=== PATIENT | male | born 1980 | race African-American/Black ===

== ENCOUNTER 2019-04-10 03:46 | Inpatient (IN) | payer SELFPAY ==
[2019-04-10] MEDS ORDERED: Lorazepam 2 MG/ML VIAL ONE ×2 (04:16→08:43)
[2019-04-10 05:20] LABS: Hemoglobin 12.7 g/dL (14.0-18.0); Mean Corpuscular HGB CONC 33.1 g/dL (32.0-36.0); Mean Corpuscular Hemoglobin 31.1 pg (27.0-31.0); Mean Platelet Volume 7.9 fL (7.4-10.4); Platelet Count 263 thou/uL (130-400); RBC Distribution Width 12.7 % (11.5-14.5); Red Blood Cell (RBC) Count 4.09 mill/uL (4.70-6.10); White Blood Cell (WBC) Count 28.4 thou/uL (4.8-10.8)
[2019-04-10 05:30] LABS: ALT (SGPT) 39 U/L (8-55); AST (SGOT) 35 U/L (5-34); Albumin 3.8 g/dL (3.5-5.0); Alkaline Phosphatase 64 U/L (40-150); Anion Gap 17 mmol/L (10-20); BUN (Urea Nitrogen) 33 mg/dL (8.9-20.6); Bilirubin, Total 0.2 mg/dL (0.2-1.2); Calc. Creatinine Clearance 0 mL/min (70-130); Calcium 8.8 mg/dL (7.8-10.44); Carbon Dioxide 20 mmol/L (22-29); Chloride 106 mmol/L (98-107); Estimated GFR-MDRD 61; Globulin 2.8 g/dL (2.4-3.5); Glucose 311 mg/dL (70-105); Potassium 4.5 mmol/L (3.5-5.1); Protein, Total 6.6 g/dL (6.0-8.3); Sodium 138 mmol/L (136-145)
[2019-04-10] MEDS ORDERED: Succinylcholine Chloride 20 MG/ML 10 ml SYRINGE FS ONE (05:37)
[2019-04-10] MEDS ORDERED: FOSPHENYTOIN SODIUM IVPB SCH (05:45)
[2019-04-10] MEDS ORDERED: SODIUM CHLORIDE 0.9% IVPB SCH (05:45)
[2019-04-10] MEDS ORDERED: Propofol 1,000 MG/100 ML VIAL IV ONE (05:47)
[2019-04-10 05:58] LABS: Band 3 % (5-11); Lymphocytes 4 % (21-51); MDiff Complete? YES; Monocytes 9 % (0-10); Neutrophil 84 % (42-75)
[2019-04-10] MEDS ORDERED: Fentanyl 100 MCG/2 ML VIAL ONE (05:59)
[2019-04-10] MEDS ORDERED: fentaNYL Citrate/PF 2,000 MCG in Sodium Chloride 0.9% 60 ML IV SCH ×2 (06:06→09:14)
[2019-04-10 06:45] LABS: Actual Bicarbonate (HCO3a) 20.2 mEq/L (22-28); Analyzer IN Cardio ER; Base Excess (BEa) -3.4 mEq/L (-2.0 to +3.0); Calcium, Ionized 1.14 mmol/L (1.12-1.30); Carboxyhemoglobin (COHb) 0.3 gm% (0.0-3.0); Hemoglobin (Hb) 12.5 g/dL (14.0-18.0); pH, Arterial 7.42 (7.35-7.45)
[2019-04-10 06:47] LABS: O2 Tension (PaO2) 508.3 mmHg (80.0-100.0); Puncture Site LRA
[2019-04-10 07:51] LABS: Bacteria/HPF None Seen HPF (None Seen); Bilirubin Negative (Negative); Blood, Urine 1+ (Negative); Clarity Clear (Clear); Glucose, Urine (Dipstick) Greater than 1000 mg/dL (Negative); Leukocyte Negative Leu/uL (Negative); Mucous/LPF Rare LPF (<2+); Nitrite Negative (Negative); Protein, Urine (Dipstick) 20 mg/dL (Neg-Trace); RBC/HPF None Seen HPF (0-3); Squamous Epithelial None Seen HPF (0-3); Urobilinogen Normal mg/dL (Less than 2); WBC/HPF 0-3 HPF (0-3)
[2019-04-10] MEDS ORDERED: hydrALAZINE 20 MG/ML VIAL SLOW IVP PRN (08:23)
[2019-04-10] MEDS ORDERED: HumaLOG 300 UNITS/3 ML VIAL SC PRN (08:23)
[2019-04-10] MEDS ORDERED: Ventilator Sedation Protocol 1 EACH FS SCH (08:23)
[2019-04-10] MEDS ORDERED: Dextrose 5% in Water 1,000 ML IV PRN (08:23)
[2019-04-10] MEDS ORDERED: Ondansetron PF 4 MG/2 ML Vial IVP PRN (08:23)
[2019-04-10] MEDS ORDERED: CCU Electrolyte Replacement 1 EACH IVPB ONE (08:23)
[2019-04-10] MEDS ORDERED: SYSTANE 3.5 GM TUBE EA EYE PRN (08:23)
[2019-04-10] MEDS ORDERED: Acetaminophen 650 MG Suppository PR PRN (08:23)
[2019-04-10] MEDS ORDERED: Bisacodyl 10 MG SUPP PR PRN (08:23)
[2019-04-10] MEDS ORDERED: Dextrose 50% Abboject 50 ML SYRINGE SLOW IVP PRN (08:23)
[2019-04-10] MEDS ORDERED: Metoclopramide HCl 10 MG/2 ML VIAL IVP PRN (08:23)
--- NOTE | 2019-04-10 08:32 | CT ---
CT OF HEAD NONCONTRAST: CLINICAL HISTORY: Seizure activity. FINDINGS: There are no prior comparisons. The patient is status post craniotomy of right parietal region, with underlying mixed-density postope rative tract, predominantly hypodense which underlies the site of craniotomy and extends inferomedial ly, to the midline. There is associated mass effect and midline shift, with approximately 5 mm leftw toy deviation at the level of the septum pellucidum. A mild degree of hyperdensity about the postope rative tract suggests hemorrhage, which may be postoperative. There is also a slight hyperdensity ov erlying the right frontal convexity adjacent minimal pneumocephalus and trace hyperdensity overlying the right convexity, which could relate to postoperative extraaxial hemorrhage. There is sulcal effa cement. Prominent soft tissues of the scalp were present. IMPRESSION: Large heterogeneous hypodense postoperative tract underlying right parietal craniotomy extending to m idline producing mass effect and midline shift. Associated postoperative hemorrhage and pneumocephal us present. Note is made of underlying tumor and/or component of infection cannot be excluded on the basis of this exam. Consider MRI of the brain with and without contrast for further evaluation. POS: MIGDALIA
--- NOTE | 2019-04-10 08:38 | CT ---
CERVICAL SPINE CT NONCONTRAST: INDICATION: Patient found down status post seizure, neck injury. FINDINGS: There is straightening of normal cervical curvature. No compression fracture of subluxation. Cranio cervical junction is intact. Incidental note of debris of the trachea which may relate to aspiration . IMPRESSION: 1. No acute fracture of the cervical spine. 2. Debris of the imaged tracheal air column which may relate to aspiration. Recommend clinical mattie elation. POS: MIGDALIA
[2019-04-10] MEDS ORDERED: Sodium Chloride 0.9% 1,000 ML IV SCH (08:45)
[2019-04-10 08:49] VITALS: BP 101/71
[2019-04-10 08:57] LABS: Magnesium 2.4 mg/dL (1.6-2.6); Phosphorus 4.7 mg/dL (2.3-4.7)
--- NOTE | 2019-04-10 08:58 | HP ---
PRIMARY CARE PHYSICIAN: [facility] Call Admission. REASON FOR ADMISSION: Acute respiratory failure, aspiration pneumonia, status epilepticus. HISTORY OF PRESENT ILLNESS: A 38-year-old male, who was recently diagnosed with brain tumor. The patient went to [facility] Emergency Room with complaint of headache, nausea, and blurred vision on March 30, 2019, and the patient was diagnosed with intracranial mass. The patient was discharged from hospital on April 02, so he can do his personal thing. Subsequently, he was readmitted and he had craniotomy done on April 04, 2019. The patient was discharged on April 07, 2019, and he returned back to hospital on the same day with new-onset seizure activity. During that admission, multiple seizure medication was changed and Keppra was added as per report. He was discharged from hospital yesterday. The patient was instructed to be very careful with insulin dosage. As per family member, he took his insulin last night around 9:00 p.m. and the patient's sister noticed him seizing around 1:00 a.m. last night and that is why she called 911 and as per paramedics, the patient was on postictal phase. The patient was brought to emergency room and in the emergency room, the patient had recurrent seizure activity. He also aspirated and for his airway protection, he was intubated. Initially, there was plan for transferring to higher level of care, but as we have capacity of 24-hour EEG and that is why the patient stayed in our ICU. In the emergency room, the patient had Ativan, IV fluid, Diprivan, fentanyl, Dilantin and subsequently, he was admitted to ICU. I saw this patient at bedside. The patient is intubated, so unable to provide any history. REVIEW OF SYSTEMS: All review of system tried to review with the patient, but unable to review at this point because of intubated. PAST MEDICAL HISTORY: History of hypertension; bladder cancer; diabetes type 2, on insulin; and recent diagnosis of brain tumor. PAST SURGICAL HISTORY: Brain tumor removal, bladder carcinoma removal. PAST PSYCHIATRIC HISTORY: Reviewed and negative. SOCIAL HISTORY: The patient has history of alcohol use socially. He does not have any history of smoking or illicit drugs abuse. FAMILY HISTORY: No family history of seizure disorder, coronary artery disease. CURRENT HOME MEDICATIONS: 1. Amlodipine 2.5 mg daily. 2. Keppra 500 mg twice daily. 3. Humalog insulin. ALLERGIES: NO KNOWN DRUG ALLERGY. EMERGENCY ROOM COURSE: Reviewed. PHYSICAL EXAMINATION: VITAL SIGNS: Currently, blood pressure 101/71, pulse 73, saturation 97% on ventilator. Weight 95.3 kg. Temperature 97.9. GENERAL: The patient is intubated and sedated. HEENT: Head; craniotomy incision healing well without any evidence of adhesions. The patient has right temporoparietal craniotomy incision. Eyes; pupils are round and reactive. No nystagmus. ENT; endotracheal tube in place. Oropharynx within normal limits. NECK: Supple. No JVD. No thyromegaly. No carotid bruit. LUNGS: Bilateral coarse breath sound in upper part, coarse rales. No wheezing. CARDIAC: S1 and S2 regular. No murmur. No gallop. No rub. ABDOMEN: Soft. No peritoneal sign. No distention. Bowel sounds present. EXTREMITIES: Upper extremity; passive movement of all joints are normal. Lower extremity, no edema. Good distal pulsation. NEUROLOGIC: Unable to assess at this point because of intubated status. SKIN: No skin rash. SIGNIFICANT LABORATORY DATA: EKG showing normal sinus rhythm, within normal limit. CT cervical spine showing no acute osseous abnormality. There is debris in posterior airway suggesting aspiration. Chest x-ray based on my review, no acute cardiopulmonary process. Post intubated chest x-ray showing no acute process. Endotracheal tube and orogastric tube in good position. CBC; WBC 28.4, hemoglobin 12.7, platelet 263 with bandemia. ABG; pH of 7.42, CO2 of 32.0, O2 of 508, bicarb 20.2, and saturation 99.4. BMP; sodium 138, potassium 4.5, chloride 106, carbon dioxide 20, BUN 33, creatinine 1.57, glucose 311, and calcium 8.8. Lactic acid 5.7. LFT; AST 35, ALT 39, alkaline phosphatase 64, and albumin 3.8. Prolactin 13.2. Urinalysis, glucosuria. Keppra level less than 2. ASSESSMENT AND PLAN: Impression: 1. Acute respiratory failure with hypoxia. The patient is intubated for airway protection underlying. The patient has aspiration pneumonia from postictal phase and recurrent seizure activity. Pulmonary consulted and they will manage ventilator while the patient is on ventilator. We will monitor ABG and chest x-ray daily. 2. Aspiration pneumonia due to recurrent seizure activity and postictal phase. The patient will be kept on Zosyn 3.375 g IV q.6 hourly. The patient will need to monitor with chest x-ray daily. 3. Acute encephalopathy due to status epilepticus to rule out nonconvulsive status epilepticus. The patient will need 24-hour continuous EEG monitoring. Neurology will be consulted. 4. Status epilepticus. The patient is currently intubated. We will continue with Keppra 1000 mg IV b.i.d. [facility] as well as Neurology on the case. 5. History of recent brain tumor, status post craniotomy. Neurosurgery on-call will be consulted. 6. Acute kidney injury. The patient will be continued with IV fluid NS at 100 mL/h. 7. Diabetes, type 2. We will continue with insulin as per sliding scale protocol. 8. Deep venous thrombosis prophylaxis, SCD boots. No Lovenox because of recent brain surgery. Gastrointestinal prophylaxis. Pepcid 20 mg IV b.i.d. CODE STATUS: The patient is full code. DISPOSITION PLAN: Based on clinical course, currently, the patient's condition is critical. Prognosis is guarded. Job ID: [id number]
[2019-04-10] MEDS ORDERED: Piperacillin/Tazobactam 3.375 GM in Sodium Chloride 0.9% 100 ML IVPB SCH (09:00)
[2019-04-10] MEDS ORDERED: Famotidine/PF 20 mg/2ml Vial SLOW IVP SCH (09:00)
[2019-04-10] MEDS ORDERED: levETIRAcetam In NaCl (Iso-Os) 1,000 MG in Premix Bag 1 BAG IVPB SCH (09:00)
[2019-04-10] MEDS ORDERED: Potassium Chloride 40 MEQ in Premix Bag 1 BAG IVPB PRN (09:13)
[2019-04-10] MEDS ORDERED: Magnesium Oxide 400 MG TAB PO PRN ×2 (09:13)
[2019-04-10] MEDS ORDERED: Potassium Chloride 20 MEQ TAB PO PRN (09:13)
[2019-04-10] MEDS ORDERED: Potassium Phosphate 12 MMOL in Sodium Chloride 0.9% 250 ML 250 ML IV PRN (09:13)
[2019-04-10] MEDS ORDERED: PHOS-NAK 1 PKT PACK PO PRN ×2 (09:13)
[2019-04-10] MEDS ORDERED: Potassium Phosphate 15 MMOL in Sodium Chloride 0.9% 250 ML 250 ML IV PRN (09:13)
[2019-04-10] MEDS ORDERED: Magnesium 2 GM/50 ML 2 GM in Premix Bag 1 BAG IVPB PRN (09:13)
[2019-04-10] MEDS ORDERED: Potassium Chloride 40 MEQ in Sodium Chloride 0.9% 250 ML 250 ML IVPB PRN (09:13)
[2019-04-10] MEDS ORDERED: Potassium Phosphate 9 MMOL in Sodium Chloride 0.9% 100 ML IVPB PRN (09:13)
[2019-04-10] MEDS ORDERED: Fentanyl BOLUS 250 ML IVPB PRN (09:14)
[2019-04-10] MEDS ORDERED: Propofol 1,000 MG/100 ML VIAL IV PRN (09:14)
[2019-04-10] MEDS ORDERED: Propofol BOLUS 1,000 MG/100 ML VIAL IV PRN (09:14)
[2019-04-10] MEDS ORDERED: Lorazepam 2 MG/ML VIAL SLOW IVP PRN (09:14)
[2019-04-10] MEDS ORDERED: Morphine 2 MG/ML SYRINGE SLOW IVP PRN (09:14)
--- NOTE | 2019-04-10 09:30 | RAD ---
CHEST 1 VIEW: HISTORY: Post intubation. FINDINGS: Heart size is normal. The lungs are clear. No pneumonia, edema, or pleural effusion. NG tube and e ndotracheal tubes are in satisfactory position as visualized. IMPRESSION: Satisfactory nasogastric tube and endotracheal tube position. No significant acute intrathoracic dis ease. POS: H
--- NOTE | 2019-04-10 10:01 | RAD ---
CHEST 1 VIEW: HISTORY: Seizure. COMPARISON: 02/10/2007. FINDINGS: Cardiac silhouette is magnified by projection. Pulmonary vasculature accentuated by shallow inspirat ion. Mediastinum is midline. Left hemidiaphragm not well delineated. Increased opacity at the retr ocardiac level. No evidence of pneumothorax. threat monitoring analyst leads overlie the chest. IMPRESSION: Obscuration of the left hemidiaphragm. Possible left basilar infiltrate versus atelectasis. Please consider upright PA and lateral views of the chest when patient can undergo that exam. POS: STONE
[2019-04-10 10:04] LABS: Lactic Acid 3.2 mmol/L (0.5-2.2)
[2019-04-10 13:51] VITALS: TEMP 98.5
--- NOTE | 2019-04-10 14:09 | CON ---
DATE OF CONSULTATION: 04/10/2019 SERVICE: Pulmonary Medicine. REASON FOR CONSULTATION: Admission to the CCU. HISTORY OF PRESENT ILLNESS: This is a 38-year-old gentleman with a past medical history of recent diagnosis of brain cancer and is status post craniotomy just earlier this month with recent discharge from the hospital. At the time of this evaluation, the patient was intubated. Therefore, much of his history was gained via chart review. It seems that after discharge from the hospital after his craniotomy, the patient had new-onset seizures, and was started on Keppra after that. The patient then had more seizure-like activity last night or early this morning around midnight, and the patient was transferred to the emergency room via EMS. The patient had recurrent seizures in the ER and was given several medications including benzodiazepines. He became altered in his mental status and was not protecting his airway and was therefore intubated. At the time of evaluation, the patient was sedated on fentanyl, though had been weaned somewhat, and the patient was not showing any signs of seizure-like activity. PAST MEDICAL HISTORY: 1. Hypertension. 2. Bladder cancer. 3. Type 2 diabetes, insulin dependent. 4. Brain mass, status post craniectomy. PAST SURGICAL HISTORY: 1. Craniectomy with brain tumor removal. 2. Bladder cancer removal. FAMILY HISTORY: No family history of seizure disorder. SOCIAL HISTORY: History of social alcohol use. No history of smoking or drugs. ALLERGIES: NO KNOWN DRUG ALLERGIES. HOME MEDICATIONS: 1. Amlodipine 2.5 mg daily. 2. Keppra 500 mg twice daily. 3. Humalog insulin. REVIEW OF SYSTEMS: Unobtainable secondary to mental status. PHYSICAL EXAMINATION: VITAL SIGNS: Blood pressure 106/77, heart rate 73, O2 saturation 93%. GENERAL: The patient is intubated and appears to be somewhat alert, in no apparent distress. LUNGS: Clear to auscultation bilaterally. CARDIAC: Regular rate and rhythm. No murmurs. NEUROLOGIC: Raissa coma scale 7 (eyes are poor, spontaneous, verbal response nontestable, motor flexion to pain. Pupils are equally reactive to light. +3 clonus at ankles bilaterally. No obvious seizure-like activity. LABORATORY DATA: White blood cell count 28.4, hemoglobin 12.7, hematocrit 38.1, platelet count 263. Chemistry; sodium is 138, potassium 4.5, carbon dioxide 20 , BUN 33, glucose 311, creatinine 1.57. Lactic acid 5.7, which trended to 3.2. TSH 2.05. Prolactin 13.2. Phosphorus 4.7, magnesium 2.4. Toxicology showed Keppra level of less than 2. Blood gas this morning at 6:40 a.m. showed pH of 7.42, pCO2 of 32, bicarbonate of 20.2. IMAGING DATA: Brain CT shows postoperative changes including a postoperative hemorrhage and pneumocephalus present. Cervical spine CT shows no acute fracture of the cervical spine and debris of the tracheal air column, which may relate to aspiration. Chest x-ray shows no acute intrathoracic disease and satisfactory NG tube placement. ASSESSMENT: 1. Acute respiratory failure with hypoxia. 2. Aspiration pneumonia secondary to seizure activity. 3. Status epilepticus. 4. Acute encephalopathy secondary to status epilepticus. 5. History of recent brain tumor with excision and recent craniotomy. 6. Type 2 diabetes. 7. Hypertension. DISCUSSION AND PLAN: This patient does not seem to be having a seizure-like activity at this time, though it is difficult to tell as the patient is sedated. The patient could benefit greatly from continuous EEG and should be transferred to a center where this can be performed. If he is still having seizure-like activity , then can benefit from transfer to center where his surgery was done anyway. From a Pulmonary standpoint, the patient seems to be doing well, and if there is time, we will try to wean the vent and extubate him, we will transfer to other center. Otherwise, recommend continuing antibiotics, and the patient should have seizure-like activity, will be sedated with propofol. This patient was seen and evaluated by Dr. Neo yTson on rounds. ATTENDING ADDENDUM: When he arrived in the ICU, all sedation was held and the patient started having ongoing seizure activity. He was heavily sedated with propofol. Because we did not have continuous EEG monitoring available, the patient was transferred to a tertiary care center. 70 minutes have been devoted to this patient in various activities. I personally reviewed all imaging studies and laboratory data noted within this document. For fifty percent of this time, I was interacting with the patient at the bedside or coordinating care with the care team. For the remainder of the time I was immediately available to the patient in the hospital unit. Job ID: [id number] [facility]
--- NOTE | 2019-04-11 11:24 | DIS ---
DATE OF ADMISSION: 04/10/2019 DATE OF DISCHARGE: 04/10/2019 DISCHARGE DISPOSITION: Transferred to other hospital. PRIMARY DISCHARGE DIAGNOSES: Status epilepticus and acute encephalopathy, aspiration pneumonia, acute respiratory failure with hypoxia, lactic acidosis, and acute kidney injury. SECONDARY DISCHARGE DIAGNOSES: History of bladder cancer, recent diagnosis of brain tumor required craniotomy. PRIMARY PROCEDURE/OPERATION: Endotracheal intubation, mechanical ventilatory support. RADIOLOGICAL INVESTIGATION: CT brain, CT cervical spine, chest x-ray. SIGNIFICANT LABORATORY DATA: WBC 28.4. Creatinine 1.57. Lactic acid 5.7. Keppra level less than 2. DISCHARGE MEDICATIONS: The patient is transferred to other hospital for further care. CONTRAINDICATION: None. CODE STATUS: Full code. INPATIENT RUBBER ENGRAVER: Pulmonary as well as Neurology and neurosurgeon was consulted initially. TEST RESULTS PENDING ON DISCHARGE: None. ALLERGIES: NO KNOWN DRUG ALLERGIES. DISCHARGE PLAN: The patient is transferred to other hospital for higher level of care. HOSPITAL COURSE: Please see my HPI for more details. This patient was admitted on April 10, 2019. The patient had recurrent seizure and he required intubation for airway protection. He had aspiration pneumonia from his encephalopathy. The patient was treated with Keppra and Dilantin in the emergency room. The patient was discharged to other hospital. I was not aware of this patient discharge, which hospital he went, but it was taken care off. This patient had recent brain tumor and brain tumor surgery was done at [facility]. For all details, please see my HPI for everything. Job ID: [id number]
--- NOTE | 2019-04-12 14:32 | EKG ---
Test Reason : Blood Pressure : / mmHG Vent. Rate : 084 BPM Atrial Rate : 084 BPM P-R Int : 142 ms QRS Dur : 098 ms QT Int : 358 ms P-R-T Axes : 059 032 033 degrees QTc Int : 423 ms Normal sinus rhythm Normal ECG Confirmed by BEL TAYLOR ([id number]), assistant production editor INDIRA PATINO ([id number]) on 04/12/2019 2:32:41 PM Referred By: Confirmed By:BEL TAYLOR
== END 2019-04-10 11:00 | disposition short-term general hospital (02) | DRG 100 ==
LOC: ERS 03:46 → CCU 08:22
PROVIDERS: ADMIT Hospitalist; ATTEND Hospitalist
PROC: 5A1935Z Respiratory Ventilation, Less than 24 Consecutive Hours (ICD-10-PCS; principal; 2019-04-10)
PROC: 0BH17EZ Insertion of Endotracheal Airway into Trachea, Via Natural or Artificial Opening (ICD-10-PCS; 2019-04-10)
DX: G40.802 Other epilepsy, not intractable, without status epilepticus (principal); J96.01 Acute respiratory failure with hypoxia; J69.0 Pneumonitis due to inhalation of food and vomit; N17.9 Acute kidney failure, unspecified; G93.49 Other encephalopathy; E87.2 Acidosis; I10 Essential (primary) hypertension; E11.9 Type 2 diabetes mellitus without complications; Z79.4 Long term (current) use of insulin; Z85.51 Personal history of malignant neoplasm of bladder; Z85.841 Personal history of malignant neoplasm of brain; Z79.899 Other long term (current) drug therapy
CPT/HCPCS: 36415; 70450; 71045; 72125; 80053; 80177; 81003; 81015; 82805; 83605; 83735; 84100; 84146; 84443; 85025; 87086; 93005; 94002; 94760; J1953; J2060; J2543; J2704; J3010; J3490; Q2009; S0028